=== PATIENT | male | born 1955 | race Two or more races ===

== ENCOUNTER → 2016-08-07 | Outpatient (REF) | payer OTHER | LOC: M SMT 16:20 | PROVIDERS: ATTEND Nurse Practitioner Family | DX: R31.9 Hematuria, unspecified (principal) ==

== ENCOUNTER → 2016-08-15 | Outpatient (CLI) | payer OTHER ==
--- NOTE | 2016-08-15 12:43 | REP ---
TRANSRECTAL PROSTATE ULTRASOUND WITH ULTRASOUND GUIDANCE FOR PROSTATE BIOPSY: Real-time sonographic evaluation of the prostate performed utilizing transrectal probe. Size of the gland is 6.5 x 4.8 x 6.2 cm for a total volume of 100 mL. The nodule on the left measures 6 x 5 mm. There is diffusely heterogeneous echotexture of the prostate with scattered tiny echogenic calcifications. Seminal vesicles appear unremarkable. Ultrasound guidance was provided for Dr. Mcdaniel who performed ultrasound guided biopsy of the prostate. Signed by Louis Chavez MD 08/15/2016 01:50 P
== END ==
LOC: M SMT PRO 08:01
PROVIDERS: ATTEND Urology
DX: R97.20 Elevated prostate specific antigen [PSA] (principal); N41.9 Inflammatory disease of prostate, unspecified; R31.9 Hematuria, unspecified
CPT/HCPCS: 76872; 76942; G0416

== ENCOUNTER → 2016-09-07 | Outpatient (CLI) | payer OTHER ==
[~2016-09-07] MED LIST: ISOVUE-370 76% 100ML VIAL (Q9967) As Ordered ONE
--- NOTE | 2016-09-07 09:58 | REP ---
Clinical: Hematuria. Technique: Axial precontrast, contrast enhanced, and delayed images of the abdomen and pelvis using 100 ml Isovue 370 intravenous contrast material with multiplanar re-formations and MIP urogram. Findings: A 5 mm nonobstructing calculus is identified in the left kidney. The kidneys, ureters, and bladder are otherwise normal in all phases of enhancement. No perinephric stranding, hydroureteronephrosis, cystic or mass lesions are identified. Liver, spleen, pancreas, gallbladder, bilateral adrenal glands are normal. The enteric system is without obstruction or acute inflammatory process. Pelvis demonstrates normal bladder. The prostate gland is enlarged measuring roughly 5.5 cm transverse diameter. Few sigmoid diverticula noted without acute diverticulitis. No ascites. No free air. No significant adenopathy. Atherosclerotic changes to the aorta and vasculature without aneurysm. Surrounding musculoskeletal structures demonstrate age-related degenerative change without focal osseous abnormality. Lung bases demonstrate left lower lobe calcified granulomata. Impression: 5 mm nonobstructing left renal calculus. Enlarged prostate gland. Few sigmoid diverticula without acute diverticulitis. No acute abdominopelvic pathology appreciated. Signed by Brian Taylor MD 09/07/2016 09:50 A
== END ==
LOC: M RAD 08:12
PROVIDERS: ATTEND Nurse Practitioner Family
DX: R31.9 Hematuria, unspecified (principal)

== ENCOUNTER → 2017-02-21 | Outpatient (CLI) | payer OTHER ==
[2017-02-23 14:13] LABS: PSA % FREE 21.6 % (.); PSA FREE 1.84 ng/mL; PSA TOTAL 8.5 ng/mL (0.0-4.0)
== END ==
LOC: M SMT 15:50
PROVIDERS: ATTEND Urology
DX: R97.20 Elevated prostate specific antigen [PSA] (principal)